=== PATIENT | female | born 1985 | race Caucasian/White ===

== ENCOUNTER 2020-11-28 18:07 | Emergency (ER) | payer BC, SELFPAY ==
--- NOTE | ~2020-11-28 | XR_ITS ---
EXAMINATION: XR hand RT min 3V DATE: 11/28/2020 18:44 INDICATION: Right hand first and second digit numbness and tingling. TECHNIQUE: 3 views of right hand were obtained. COMPARISON: None. FINDINGS: Bone alignment is normal. There is an old healed fracture of distal radius with dorsal plat e and screws. There is 6 degrees dorsal tilt of the distal articular surface. 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 Joint spaces are normal. IMPRESSION: 1. Old healed fracture of distal radius with internal fixation. Reviewed, dictated and finalized at location A.
[2020-11-28 18:22] VITALS: BP 129/77; PULSE 97; RESP 16; TEMP 36.7; O2SAT 98
[2020-11-28 19:25] VITALS: BP 132/89; PULSE 95; RESP 18; TEMP 36.5; O2SAT 98
--- NOTE | 2020-11-28 21:41 | ED.GENADULT ---
HPI - General Adult General Chief complaint: Extremity Injury, Upper Stated complaint: right hand pain Time Seen by Provider: 11/28/20 19:58 History of Present Illness HPI narrative: Patient is a 35-year-old female presents emerged part with chief complaint of right thumb pain. Patient reports she jammed her right thumb reports she has prior history of injury to her right wrist and had ORIF of the right radius. Patient states that after she jammed her thumb she pulled on it and reported that she is been having some tingling in her thumb. Patient denies any lacerations denies any other injuries. The patient reports that the area is slightly swollen Related Data Home Medications Medication Instructions Recorded Confirmed levothyroxine 11/28/20 11/28/20 Allergies Allergy/AdvReac Type Severity Reaction Status Date / Time oseltamivir [From Tamiflu] Allergy Rash Verified 11/28/20 19:32 promethazine [From Phenergan] Allergy Rash Verified 11/28/20 19:33 Review of Systems Review of Systems: A 10 system review of systems was completed on the patient and is negative except for what is stated in the HPI. Nursing and ancillary documentation was reviewed. Exam Narrative: GENERAL: Well-appearing, well-nourished, and in no acute distress. HEAD: Normocephalic, atraumatic. EYES: PERRLA and EOMI. ENT: Nares clear, no rhinorrhea or epistaxis. Mucous membranes moist. NECK: Supple. CHEST: Clear to auscultation. No respiratory distress. HEART: Regular rate and rhythm. No murmur heard. Normal peripheral pulses. ABDOMEN: Soft, nontender, nondistended, normal active bowel sounds. EXTREMITIES: Normal range of motion. No edema. There is tenderness palpation of the right thumb at the MCP joint SKIN: Warm, dry, no rash. NEURO: No focal deficits. Alert and oriented x3. PSYCH: Normal mood and affect. Course Course Emergency Course: Plain film x-rays of the right hand showed no evidence of fracture Vital Signs Vital signs: Vital Signs Temperature 36.7 C 11/28/20 18:22 Pulse Rate 97 11/28/20 18:22 Respiratory Rate 16 11/28/20 18:22 Blood Pressure 129/77 11/28/20 18:22 Pulse Oximetry 98 11/28/20 18:22 Temperature 36.5 C 11/28/20 19:25 Pulse Rate 95 10/12/21 19:25 Respiratory Rate 18 11/28/20 19:25 Blood Pressure 132/89 11/28/20 19:25 Pulse Oximetry 98 11/28/20 19:25 Medical Decision Making Vital Signs Vital Signs: Vital Signs Temperature 36.7 C 11/28/20 18:22 Pulse Rate 97 11/28/20 18:22 Respiratory Rate 16 11/28/20 18:22 Blood Pressure 129/77 11/28/20 18:22 Pulse Oximetry 98 11/28/20 18:22 Temperature 36.5 C 11/28/20 19:25 Pulse Rate 95 11/28/20 19:25 Respiratory Rate 18 11/28/20 19:25 Blood Pressure 132/89 11/28/20 19:25 Pulse Oximetry 98 11/28/20 19:25 Discharge Plan Discharge Clinical Impression: Sprain of hand, thumb, right Qualifiers: Encounter type: initial encounter Sprain of finger site: metacarpophalangeal joint Qualified Code(s): S63.641A - Sprain of metacarpophalangeal joint of right thumb, initial encounter Patient Disposition: Home, Self-Care Condition: Stable Instructions: Antibiotic Form, Finger Sprain (ED) Prescriptions: New diclofenac sodium 50 mg tablet,delayed release (DR/EC) 50 mg PO TID PRN (Reason: pain) Qty: 30 RF: 0 No Action levothyroxine 75 mcg tablet RF: 0 Follow-up/Referrals: Na,BJ Lloyd [Primary Care Provider] - Time of Disposition: 21:45
[2020-11-28 22:01] VITALS: BP 127/88; PULSE 80; RESP 18; O2SAT 98
== END 2020-11-28 22:02 | disposition home or self-care (01) ==
PROVIDERS: Emergency Provider Emergency Medicine; PCP Nurse Practitioner Adult Health
DX: S63.641A Sprain of metacarpophalangeal joint of right thumb, initial encounter (principal); W22.8XXA Striking against or struck by other objects, initial encounter
CPT/HCPCS: 73130; 99283

== ENCOUNTER → 2021-01-16 03:23 | Outpatient (CLI) | payer BC, SELFPAY ==
[2021-01-16 20:05] LABS: SARS-CoV-2 RNA PCR Positive
== END ==
PROVIDERS: PCP Nurse Practitioner Adult Health; Visit Provider Nurse Practitioner Adult Health
DX: U07.1 COVID-19 (principal); R09.81 Nasal congestion
CPT/HCPCS: C9803; U0003; U0005